=== PATIENT | female | born 1980 | race Caucasian/White ===

== ENCOUNTER 2022-03-11 09:11 | Outpatient (CLI) | payer OTHER, SELFPAY ==
--- NOTE | ~2022-03-11 | XR_ITS ---
EXAMINATION: XR chest 2V DATE: 03/11/2022 09:28 INDICATION: Pneumonia. Left posterior chest pain. TECHNIQUE: Frontal and lateral views of the chest were obtained. COMPARISON: None. FINDINGS: The chest demonstrates clear lungs without pneumonia, pleural effusion, or pneumothorax. Th e heart size is normal. IMPRESSION: 1. No acute cardiopulmonary disease. Reviewed, dictated and finalized at location A. ING COORDINATOR
== END 2022-03-11 09:12 | disposition home or self-care (01) ==
PROVIDERS: PCP Family Medicine; Visit Provider Nurse Practitioner Family
DX: J18.9 Pneumonia, unspecified organism (principal); R05.9 Cough, unspecified; U07.1 COVID-19
CPT/HCPCS: 71046

== ENCOUNTER 2022-03-13 11:46 | Outpatient (CLI) | payer OTHER, SELFPAY ==
--- NOTE | ~2022-03-13 | CT_ITS ---
EXAMINATION: CTA chest PE protocol DATE: 03/13/2022 12:27 INDICATION: Shortness of breath TECHNIQUE: Computed tomography angiography (CTA) of the chest was performed with 100 mL Omnipaque-350 intravenous contrast timed to evaluate the pulmonary arteries. Coronal maximum intensity projection 3D-reconstructions were created by the technologist. The dose-length product (DLP) was 164.55 mGy-cm. Automated exposure control and iterative reconstruction technique were employed. COMPARISON: None. FINDINGS: The pulmonary arteries are well-opacified. No pulmonary embolism is identified. The lungs a re free of acute opacities. No pleural effusion or pneumothorax. No pathologically enlarged thoracic lymph nodes are identified. The heart size is normal. IMPRESSION: 1. No pulmonary embolism or acute cardiopulmonary abnormality. Reviewed, dictated and finalized at location B. GE MILL OPERATOR
== END 2022-03-13 11:47 | disposition home or self-care (01) ==
LOC: ANHIMG 11:55
PROVIDERS: PCP Family Medicine; Visit Provider Nurse Practitioner Family
DX: R06.02 Shortness of breath (principal)
CPT/HCPCS: 71275; Q9967

== ENCOUNTER 2023-06-05 11:15 | Outpatient (CLI) | payer OTHER, SELFPAY ==
[2023-06-05 12:17] LABS: Alanine Aminotransferase 19 U/L (6-35); Albumin Level 4.5 g/dL (3.5-5.1); Alkaline Phosphatase 68 U/L (38-126); Aspartate Amino Transferase 23 U/L (14-36); Bilirubin Indirect 1.4 mg/dL (0-1.1); Bilirubin,Total 1.7 mg/dL (0.2-1.3)
== END 2023-06-05 11:16 | disposition home or self-care (01) ==
LOC: ANHLAB 11:17
PROVIDERS: PCP Family Medicine; Visit Provider Nurse Practitioner Family
DX: R17 Unspecified jaundice (principal); R19.4 Change in bowel habit
CPT/HCPCS: 36415; 80076

== ENCOUNTER 2023-06-06 10:09 | Outpatient (CLI) | payer OTHER, SELFPAY ==
[2023-06-11 14:28] LABS: Calprotectin, Stool 6 mcg/g
== END 2023-06-06 10:10 | disposition home or self-care (01) ==
LOC: ANHLAB 10:10
PROVIDERS: PCP Family Medicine; Visit Provider Nurse Practitioner Family
DX: R19.4 Change in bowel habit (principal); R17 Unspecified jaundice
CPT/HCPCS: 83993

== ENCOUNTER 2023-06-24 09:21 | Outpatient (NON) | payer OTHER, SELFPAY | END 2023-06-24 09:22 | disposition home or self-care (01) | PROVIDERS: PCP Family Medicine; Visit Provider Internal Medicine Gastroenterology | DX: R11.2 Nausea with vomiting, unspecified (principal) | CPT/HCPCS: 88305 ==

== ENCOUNTER 2023-06-24 09:38 | Day surgery (SDC) | payer OTHER, SELFPAY ==
[2023-06-10 08:52] VITALS: BMI 23.2
[2023-06-11 13:40] VITALS: BMI 22.8
--- NOTE | 2023-06-20 08:51 | PM.HPGS ---
History of Present Illness History of Present Illness Consent: Risks, benefits, and alternatives have been discussed and questions answered. Patient agrees to proceed with procedure. Chief complaint: Nausea w/vomiting unspecified,unspecified abd pain Narrative: Geri Urrutia is a 43 year old female Suffering from nausea and vomiting. She has previously been seen by Roof Foreman Dr. Jemal Singh at [facility] but has not seen him since before Covid.? she went to see him for complaints of nausea,? vomiting,? bloating,? abdominal pain, alternating constipation/diarrhea, bad taste in mouth. Had EGD by him in 2018, which revealed gastric and duodenal erosions.? gastric bx showed mild chronic gastritis, h. pylori negative. Small bowel biopsies were negative for any pathological abnormalities. In complaint is burning which is in the upper abdomen and belt like in distribution. She has lost about 7 lb since this began because of a poor appetite and nausea. she has been treated several times for SIBO with Xifaxan, including 2 recent episodes without benefit.. Review of Systems Review of Systems: All systems reviewed & are unremarkable except as noted in HPI and below PMFSH Past Medical History Medical History BMI 22.0-22.9, adult BMI 23.0-23.9, adult COVID Nausea & vomiting Pneumonia Family History Family History Father Hypertension Acute myocardial infarction Mother Hypertension Cerebrovascular accident Sibling Hypertension Grandparent Malignant neoplasm of prostate Family history of lung cancer Family history of malignant neoplasm of breast Other Diabetes mellitus Family history of malignant neoplasm Social History Social History Smoking status: Never smoker Second hand tobacco smoke exposure: No Alcohol intake: current Substance use: never Substance use type: does not use Do You Feel Safe in your Home?: Yes Lack of Transportation: No Lack of Food: Never True Current Housing: I Have Housing Concerned About Future Housing: No Difficulty Paying Gas/Electric Bills: No Difficulty Paying for Meds: No Currently Unemployed: No Education: Bachelor's Degree Difficulty w/ Childcare or Family Care: No Living arrangements: with family Occupation/Education: occupation 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[employer] Gender identity (if verbalized by the patient): Female Spiritual care concerns: No Meds Home Medications and Allergies Home Medications Medication Instructions Recorded Confirmed Type albuterol sulfate 90 mcg/actuation 1 puff inhalation Q4H PRN 07/03/20 06/24/23 Rx aerosol inhaler (ProAir HFA) shortness of breath or wheezing #6.7 grams norethindrone 1 mg-ethinyl 1 tablet PO DAILY 10/09/21 06/24/23 History estradiol 20 mcg (24)-iron 75 mg (4) tablet (Blisovi Fe) cetirizine 10 mg tablet (Zyrtec) 10 mg PO DAILY #90 tabs 04/10/22 06/24/23 Rx Lactobacillus 1 cap PO DAILY 06/11/23 06/24/23 History acidophilus-Bifidobac.animalis 2.5 billion cell capsule (Daily Probiotic) multivitamin with minerals-folic 1 tablet PO DAILY 06/11/23 06/24/23 History acid 0.4 mg tablet Allergies Allergy/AdvReac Type Severity Reaction Status Date / Time erythromycin base Allergy Unknown Unknown Verified 06/24/23 10:52 Sulfa (Sulfonamide Allergy Unknown Unknown Verified 06/24/23 10:52 Antibiotics) Exam Const: General: alert Orientation/consciousness: patient oriented x3 Resp: Auscultation: clear to auscultation bilaterally Cardio: Rhythm: regular rhythm GI: GI Palp: Yes Soft to palpation and No Tenderness to palpation present (GI) Neuro: General: patient oriented x3 Assessment and Plan Assessment and plan (
[2023-06-24 10:58] VITALS: BMI 23.2
--- NOTE | 2023-06-24 11:03 | WPDANESEPPF ---
Anes - Initial Pre Proc Eval Procedure: Operation Date: 06/24/23 11:00 Proposed Procedures p Esophagogastroduodenoscopy - Heber Helm MD Date/Time: 06/24/23 11:03 Surgeon: Heber Helm MD Pre Op Diagnosis: Nausea w/vomiting unspecified,unspecified abd pain Patient Data Age: 43 Gender: F Height: 1.73 m Weight: 68.3 kg Allergies Allergy/AdvReac Type Severity Reaction Status Date / Time erythromycin base Allergy Unknown Unknown Verified 06/24/23 10:52 Sulfa (Sulfonamide Allergy Unknown Unknown Verified 06/24/23 10:52 Antibiotics) Home Medications Medication Instructions Recorded Confirmed Type albuterol sulfate 90 mcg/actuation 1 puff inhalation Q4H PRN 07/03/20 06/24/23 Rx aerosol inhaler (ProAir HFA) shortness of breath or wheezing #6.7 grams norethindrone 1 mg-ethinyl 1 tablet PO DAILY 10/09/21 06/24/23 History estradiol 20 mcg (24)-iron 75 mg (4) tablet (Blisovi 24 Fe) cetirizine 10 mg tablet (Zyrtec) 10 mg PO DAILY #90 tabs 04/10/22 06/24/23 Rx Lactobacillus 1 cap PO DAILY 06/11/23 06/24/23 History acidophilus-Bifidobac.animalis 2.5 billion cell capsule (Daily Probiotic) multivitamin with minerals-folic 1 tablet PO DAILY 06/11/23 06/24/23 History acid 0.4 mg tablet Patient hx anesthesia problems: none Family hx anesthesia problems: none Results Review: All pre-operative results and documents have been reviewed as part of the pre-operative evaluation. [facility] Past Medical History Medical History BMI 22.0-22.9, adult BMI 23.0-23.9, adult COVID Nausea & vomiting Pneumonia Family History Family History Father Hypertension Acute myocardial infarction Mother Hypertension Cerebrovascular accident Sibling Hypertension Grandparent Malignant neoplasm of prostate Family history of lung cancer Family history of malignant neoplasm of breast Other Diabetes mellitus Family history of malignant neoplasm Social History Social History Smoking status: Never smoker Second hand tobacco smoke exposure: No Alcohol intake: current Substance use: never Substance use type: does not use Do You Feel Safe in your Home?: Yes Lack of Transportation: No Lack of Food: Never True Current Housing: I Have Housing Concerned About Future Housing: No Difficulty Paying Gas/Electric Bills: No Difficulty Paying for Meds: No Currently Unemployed: No Education: Bachelor's Degree Difficulty w/ Childcare or Family Care: No Living arrangements: with family Occupation/Education: occupation 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 Informed Consent: The patient's anesthetic plan and its attendant risks and benefits were discussed with the patient/family/POA. Questions were solicited and answers provided to the satisfaction of the patient/family/POA.
[2023-06-24 11:04] VITALS: BP 143/81; PULSE 58; RESP 16; TEMP 36.7; O2SAT 100
[2023-06-24] MEDS: LACTATED RINGERS 1,000 ML 150 ML IV CONT (11:19)
[2023-06-24 12:06] VITALS: BP 106/64; PULSE 70; RESP 18; O2SAT 100
[2023-06-24 12:16] VITALS: BP 106/77; PULSE 58; RESP 17; O2SAT 99
--- NOTE | 2023-06-24 12:19 | WPDANESPN ---
Anes - Prog Note Post-Op Date/Time: 06/24/23 12:19 Cardiovascular status: normal Respiratory status: normal Airway patency: baseline Mental status: baseline Post-Op hydration status: normal Vital Signs: Last Vital Signs Temp 36.7 C 06/24/23 11:04 Pulse 70 06/24/23 12:06 Resp 18 06/24/23 12:06 BP 106/64 06/24/23 12:06 Pulse Ox 100 06/24/23 12:06 O2 Del Method Room Air 06/24/23 12:06 Pain Score (VAS): 0 I/O: Intake & Output 06/23/23 06/24/23 06/24/23 23:59 07:59 15:59 Intake Total 300 Balance 300 Patient Feedback: Patient satisfied with anesthetic care.
[2023-06-24 12:26] VITALS: BP 110/70; PULSE 49; RESP 16; O2SAT 99
== END 2023-06-24 12:41 | disposition home or self-care (01) ==
PROVIDERS: PCP Family Medicine; Visit Provider Internal Medicine Gastroenterology
PROC: 0DJ08ZZ Inspection of Upper Intestinal Tract, Via Natural or Artificial Opening Endoscopic (ICD-10-PCS; CPT 43235; principal; 2023-06-24 11:00)
DX: R11.2 Nausea with vomiting, unspecified (principal); R10.13 Epigastric pain; K21.9 Gastro-esophageal reflux disease without esophagitis
CPT/HCPCS: 43239

== ENCOUNTER 2023-07-22 11:19 | Outpatient (CLI) | payer OTHER, SELFPAY ==
[2023-07-22 11:55] LABS: Hematocrit 42.9 % (37.0-47.0); Hemoglobin 14.3 g/dL (12.0-15.0); Mean Corpuscular HGB Conc 33.3 g/dl (32-36); Mean Corpuscular Hemoglobin 30.5 pg (26-34); Mean Corpuscular Volume 91.5 fl (80-100); Mean Platelet Volume 12.2 fl (7.4-10.4); Platelet Count Result 198 k/mm3 (150-375); Red Blood Count 4.69 M/mm3 (4.2-5.4); Red Cell Distribution Width 12.3 % (11.5-14.5); White Blood Count 9.2 K/mm3 (4.5-10.0)
[2023-07-22 12:26] LABS: Alanine Aminotransferase 19 U/L (6-35); Albumin Level 4.3 g/dL (3.5-5.1); Alkaline Phosphatase 62 U/L (38-126); Anion Gap 4 mmol/L (4-12); Aspartate Amino Transferase 23 U/L (14-36); Bilirubin,Total 1.5 mg/dL (0.2-1.3); Blood Urea Nitrogen 13 mg/dL (7-17); Calcium 9.1 mg/dL (8.4-10.2); Carbon Dioxide 28 mmol/L (22-30); Chloride 107 mmol/L (98-107); Estimated Glomerular Filt Rate > 60; Glucose 93 mg/dL (65-110); Potassium 4.2 mmol/L (3.4-5.0); Sodium 139 mmol/L (137-145)
== END 2023-07-22 11:20 | disposition home or self-care (01) ==
LOC: ANHLAB 11:20
PROVIDERS: PCP Family Medicine; Visit Provider Nurse Practitioner Family
DX: R11.2 Nausea with vomiting, unspecified (principal); R10.13 Epigastric pain; R79.89 Other specified abnormal findings of blood chemistry
CPT/HCPCS: 36415; 80053; 85027

== ENCOUNTER 2023-08-01 08:04 | Outpatient (CLI) | payer OTHER, SELFPAY ==
--- NOTE | ~2023-08-01 | NM_ITS ---
EXAM: NM gastric emptying study DATE: 08/01/2023 12:28 INDICATION: Nausea with vomiting, unspecified. TECHNIQUE: A gastric emptying study was performed using the methodology of Julissa JORGE, et al. J Nucl Med 2007; 48:568-572. The patient was given a meal consisting of 2 scrambled eggs labeled with 1.017 mCi Tc-99m sulfur colloid, 2 slices of toast, two packages of jam, and approximately 120 mL of water . Simultaneous anterior and posterior 1-min images of the abdomen were obtained with the patient supi ne at multiple time points over a total period of 4 hours. The geometric mean of anterior and posteri or views was determined, and the percentage retention was calculated for each time point. COMPARISON: None. FINDINGS: Gastric retention of the radiotracer-labeled meal was 24%, 8%, and 3% at the 1-hour, 2-luis r, and 4-hour time points, respectively. With this technique, apparent rapid gastric emptying is sugg ested by <30% gastric retention at 1 hour. Delayed gastric emptying is defined by gastric retention o f >90% at 1 hour, >60% retention at 2 hours, or >10% retention at 4 hours. IMPRESSION: 1. Rapid gastric emptying. Reviewed, dictated and finalized at location A. IMPRESSION: 1. Rapid gastric emptying.
== END 2023-08-01 08:05 | disposition home or self-care (01) ==
PROVIDERS: PCP Family Medicine; Visit Provider Nurse Practitioner Family
DX: R11.2 Nausea with vomiting, unspecified (principal); R10.13 Epigastric pain
CPT/HCPCS: 78264; A9541

== ENCOUNTER 2023-08-04 07:27 | Outpatient (CLI) | payer OTHER, SELFPAY ==
--- NOTE | ~2023-08-04 | NM_ITS ---
EXAMINATION: NM hepatobiliary wo pharm DATE: 08/04/2023 10:50 INDICATION: Epigastric abdominal pain. COMPARISON: Chest CT 03/13/2022 TECHNIQUE: 5.2 mCi Tc-99m mebrofenin (Choletec) was administered intravenously. Scintigraphic images of the abdomen were obtained for one hour. Then, the patient drank 8 oz Ensure, and imaging was cont inued for 60 minutes. FINDINGS: There is normal clearance of radiotracer from the blood pool. There is homogeneous tracer u ptake by the liver. Activity progresses to the bowel and gallbladder. Gallbladder ejection fraction (GBEF) was 78%. Note that with this technique, normal GBEF >= 33%. IMPRESSION: 1. Normal hepatobiliary scintigraphy. Reviewed, dictated and finalized at location A.
== END 2023-08-04 07:28 | disposition home or self-care (01) ==
PROVIDERS: PCP Family Medicine; Visit Provider Nurse Practitioner Family
DX: R10.13 Epigastric pain (principal); R11.2 Nausea with vomiting, unspecified
CPT/HCPCS: 78226; A9537

== ENCOUNTER 2023-08-27 14:04 | Outpatient (CLI) | payer OTHER, SELFPAY ==
[2023-09-01 15:34] LABS: Fecal Fat, Ql Normal (Normal)
[2023-09-03 21:14] LABS: Pancreatic Elastase, Stool >500 mcg/g
== END 2023-08-27 14:05 | disposition home or self-care (01) ==
LOC: ANHLAB 14:05
PROVIDERS: PCP Family Medicine; Visit Provider Nurse Practitioner Family
DX: R63.4 Abnormal weight loss (principal); R11.2 Nausea with vomiting, unspecified; R10.13 Epigastric pain; K58.2 Mixed irritable bowel syndrome
CPT/HCPCS: 82653; 82705; 87045; 87177; 87209; 87269; 87427; 87449

== ENCOUNTER 2023-09-10 08:03 | Outpatient (CLI) | payer OTHER, SELFPAY ==
--- NOTE | ~2023-09-10 | CT_ITS ---
EXAMINATION: CTA abdomen pelvis DATE: 09/10/2023 08:32 INDICATION: Unspecified abdominal pain. Epigastric abdominal pain. TECHNIQUE: Computed tomographic angiography (CTA) of the abdomen and pelvis was performed with 100 mL Omnipaque-350 intravenous contrast. Automated exposure control and iterative reconstruction techniqu e were employed. The dose-length product was 317.05 mGy-cm. Maximum intensity projection 3D-reconstru ctions of the aorta and other arteries were constructed by the technologist on a separate workstation . COMPARISON: Chest CT 01/10/2023 FINDINGS: The visualized portions of the lung bases demonstrate minimal atelectasis. No pleural effus ion. The heart size is normal. No pericardial effusion. The liver, gallbladder, spleen, pancreas, adr enal glands, and kidneys are normal. There are no dilated loops of bowel. The appendix is normal. Abd ominal aorta is normal in caliber. No dissection. There is no significant stenosis of celiac axis, bustamante perior mesenteric artery, inferior mesenteric artery, or the renal arteries. There are no pathologica lly enlarged lymph nodes. There is no free intraperitoneal fluid. There is mild thoracic and lumbar s pondylosis. IMPRESSION: 1. Normal abdominal aorta. Reviewed, dictated and finalized at location A. IMPRESSION: 1. Normal abdominal aorta.
== END 2023-09-10 08:04 | disposition home or self-care (01) ==
LOC: ANHIMG 08:05
PROVIDERS: PCP Family Medicine; Visit Provider Nurse Practitioner Family
DX: R10.13 Epigastric pain (principal); R11.2 Nausea with vomiting, unspecified; R63.4 Abnormal weight loss
CPT/HCPCS: 74174; Q9967

== ENCOUNTER 2024-07-06 08:10 | Emergency (ER) | payer OTHER, SELFPAY ==
--- NOTE | 2024-07-06 08:14 | ED.FEMALEGU ---
HPI - Female Genitourinary General Chief complaint: Urogenital-Female Stated complaint: Uti Symptoms Time Seen by Provider: 07/06/24 08:29 Source: patient, RN notes reviewed and old records reviewed Mode of arrival: ambulatory Limitations: no limitations History of Present Illness HPI Narrative: 44-year-old female presents to the [facility] with 3 day history of burning, frequency and urgency as well as low back pain. Denies any nausea or vomiting. Had felt feverish yesterday. Tried drinking cranberry juice with no relief Onset (ago): day(s) (3) Related Data Home Medications ?Medication ?Instructions ?Recorded ?Confirmed ?Last Taken ?Type norethindrone 1 mg-ethinyl 1 tablet PO DAILY 10/09/21 08/25/23 06/23/23 History estradiol 20 mcg (24)-iron 75 mg (4) tablet (Blisovi 24 Fe) Lactobacillus 1 cap PO DAILY 06/11/23 08/25/23 06/20/23 History acidophilus-Bifidobac.animalis 2.5 billion cell capsule (Daily Probiotic) multivitamin with minerals-folic 1 tablet PO DAILY 06/11/23 08/25/23 06/20/23 History acid 0.4 mg tablet Allergies Allergy/AdvReac Type Severity Reaction Status Date / Time Sulfa (Sulfonamide Allergy Intermediate Rash Verified 07/06/24 08:24 Antibiotics) erythromycin base Allergy Unknown Unknown Verified 07/06/24 08:24 Review of Systems Review of Systems: All systems reviewed & are unremarkable except as noted in HPI and below Constitutional: Constitutional: Reports no additional constitutional complaints ENT: Reports system reviewed and no additional complaints, except as documented Cardiovascular: Cardiovascular: Reports no additional cardiovascular complaints, Denies chest pain and Denies dyspnea Respiratory: Respiratory: Reports no additional respiratory complaints, Denies chest congestion, Denies cough and Denies dyspnea Genitourinary: Genitourinary: Reports as per HPI Musculoskeletal: Musculoskeletal: Reports no additional musculoskeletal complaints Integumentary/Breasts: Skin/Breast: Reports system reviewed and no additional complaints, except as docu PMFSH Past Medical History Medical History Weight loss Elevated LFTs Epigastric pain Nausea & vomiting BMI 23.0-23.9, adult Pneumonia COVID BMI 22.0-22.9, adult Family History Family History Father Hypertension Acute myocardial infarction Mother Hypertension Cerebrovascular accident Sibling Hypertension Grandparent Malignant neoplasm of prostate Family history of lung cancer Family history of malignant neoplasm of breast Other Diabetes mellitus Family history of malignant neoplasm Social History Social History Smoking status: Never smoker Second hand tobacco smoke exposure: No Alcohol intake: current Substance use: never Substance use type: does not use Do You Feel Safe in your Home?: Yes Lack of Transportation: No Lack of Food: Never True Current Housing: I Have Housing Concerned About Future Housing: No Difficulty Paying Gas/Electric Bills: No Difficulty Paying for Meds: No Currently Unemployed: No Education: Bachelor's Degree Difficulty w/ Childcare or Family Care: No Living arrangements: with family Occupation/Education: occupation 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 There is no relevant family history pertinent to the patient complaint. Exam Const: General: cooperative, healthy appearing, comfortable, no acute distress, well developed, alert and well nourished Nutritional Appearance: well nourished Orientation/consciousness: patient oriented x3 Limitations: no limitations HENMT: Head: normal to inspection Mouth: Yes Normal oral and palatal mucosa present, Yes lip normal, Yes tongue normal and Yes moist mucous membranes Eyes: General: appearance normal, both eyes and all related structures Alignment and Position: alignment normal Neck: Neck: normal visual inspection, full ROM, no lymphadenopathy and no meningeal signs Chest: Chest palpation & inspection: normal inspection of the chest Resp: Effort & Inspection: normal respiratory effort and able to speak in complete sentences Auscultation: clear to auscultation bilaterally, no crackles, no rales, no rhonchi and no wheezes Cardio: Rate: regular rate GI: GI Palp: No abdominal tenderness : General: Yes no CVA tenderness Skin: General skin exam: normal color and no rashes or lesions noted Neuro: General: patient oriented x3, gait normal, moves all extremities and no meningeal signs Cognition (Neuro): normal cognition Speech: normal speech Gait exam (Neuro): Normal gait present Extrem: General: normal to inspection, full ROM, capillary refill normal and normal gait Psych: Appearance: grossly normal and well kempt Mental Status: mental status grossly normal Speech and movement: Normal speech and movement present and Clear speech present Affect: normal affect Attitude: cooperative Course Course Level of Care: Express Care Visit Vital Signs Vital signs: Vital Signs Temperature 97.9 F 07/06/24 08:17 Pulse Rate 90 07/06/24 08:17 Respiratory Rate 16 07/06/24 08:17 Blood Pressure 116/75 07/06/24 08:17 Pulse Oximetry 100 07/06/24 08:17 Oxygen Delivery Room Air 07/06/24 08:17 Temperature 97.9 F 07/06/24 08:17 Pulse Rate 90 07/06/24 08:17 Respiratory Rate 16 07/06/24 08:17 Blood Pressure 116/75 07/06/24 08:17 Pulse Oximetry 100 07/06/24 08:17 Oxygen Delivery Room Air 07/06/24 08:17 Reviewed MDM - Female Genitourinary MDM Narrative Medical decision making narrative: Patient sitting exam. Patient is nontoxic, vitals are stable. Patient presents with urinary symptoms. Positive leukocytes, blood will cover with antibiotic, send for culture Patient appropriate for outpatient treatment with close follow-up Discharge instructions reviewed with patient, as well as provided in writing per nursing staff. The instructions also include specific and strict return/GO TO THE ER as well as f/u information. All questions have been answered, and the patient deny any further questions with discharge and discharge plan. Some parts of this dictation were generated by voice recognition software and may contain typographical and/or grammatical inaccuracies. Differential Diagnosis Differential diagnosis: Likely urinary tract infection, bacterial vaginosis, vaginitis, cystitis and dysmenorrhea Lab Data Labs: Lab Results 07/06/24 Range/Units 08:24 POC Urine Color Yellow POC Urine Clarity Clear POC Urine pH 8.5 POC Ur Specif [place] 1.015 POC Urine Protein Negative (Negative) POC Ur Glucose (UA) Negative (Negative) POC Urine Ketones Negative (Negative) POC Urine Blood 2+ (Negative) POC Urine Nitrite Negative (Negative) POC Urine Bilirubin Negative (Negative) POC Urine Urobilinogen 0.2 POC U Leukocyte Esteras 1+ (Negative) Reviewed Critical Care Time Critical Care Time Critical Care Time: No Discharge Plan Discharge Clinical Impression: Urinary tract infection Qualifiers: Urinary tract infection type: acute cystitis Hematuria presence: with hematuria Qualified Code(s): N30.01 - Acute cystitis with hematuria Patient Disposition: Home Condition: Stable Instructions: Antibiotic Form, Urinary Tract Infection in Women (DC) Additional Instructions: Increased water intake Take Tylenol as needed for pain Take antibiotic as prescribed Today your urine dip showed a probability of a UTI. You have been prescribed an antibiotic. Your urine will be sent to our lab for a culture. If at that time a bacteria grows that is not covered by the antibiotic prescribed you will be notified. Follow-up with primary care For new or worsening symptoms go directly to the emergency room Patient Language: Montenegrin Prescriptions: New amoxicillin-pot clavulanate 875-125 mg tablet 1 tablet PO Q12H Qty: 10 0RF phenazopyridine [Pyridium] 200 mg tablet 200 mg PO TID PRN (Reason: pain) Qty: 6 0RF No Action mirtazapine 7.5 mg tablet 7.5 mg PO QHS 30 Days Qty: 30 1RF albuterol sulfate [ProAir HFA] 90 mcg/actuation HFA aerosol inhaler 1 puff INHALATION Q4H PRN (Reason: shortness of breath or wheezing) Qty: 6.7 1RF norethindrone-e.estradiol-iron [Blisovi 24 Fe] 1 mg-20 mcg (24)/75 mg (4) tablet 1 tablet PO DAILY cetirizine [Zyrtec] 10 mg tablet 10 mg PO DAILY Qty: 90 0RF esomeprazole magnesium [Nexium] 40 mg capsule,delayed release(DR/EC) 40 mg PO BID 30 Days Qty: 60 2RF multivit with min-folic acid 0.4 mg Tablet 1 tablet PO DAILY Daily Probiotic 2.5 billion cell Capsule 1 cap PO DAILY Follow-up/Referrals: Nirav Costello MD [Primary Care Provider] - 2 Weeks (express care follow up ) Stand Alone Forms: Work/School Release IP Time of Disposition: 08:38
[2024-07-06 08:17] VITALS: BP 116/75; PULSE 90; RESP 16; TEMP 36.6; O2SAT 100
[2024-07-06 08:26] LABS: EDUAAPPEAR Clear; EDUABILI Negative (Negative); EDUABLOOD 2+ (Negative); EDUACOLOR1 Yellow; EDUAGLUCOSE Negative (Negative); EDUAKETONE Negative (Negative); EDUALEUKO 1+ (Negative); EDUANITRATE Negative (Negative); EDUAPH 8.5; EDUAPROTEIN Negative (Negative); EDUASPGRAVITY 1.015; EDUAUROBILI 0.2
== END 2024-07-06 08:39 | disposition home or self-care (01) ==
PROVIDERS: Emergency Provider Nurse Practitioner; PCP Family Medicine
DX: N30.01 Acute cystitis with hematuria (principal); Z86.16 Personal history of COVID-19
CPT/HCPCS: 81003; 87077; 87086; 87186; 99213; G0463

== ENCOUNTER 2024-11-01 19:35 | Emergency (ER) | payer OTHER, SELFPAY ==
[2024-11-01 19:38] VITALS: BP 121/86; PULSE 71; RESP 16; TEMP 36.5; O2SAT 100
--- NOTE | 2024-11-01 19:55 | ED.FEMALEGU ---
HPI - Female Genitourinary General Chief complaint: Urogenital-Female Stated complaint: Uti Symptoms Time Seen by Provider: 11/01/24 20:04 Source: patient, RN notes reviewed and old records reviewed Mode of arrival: ambulatory Limitations: no limitations History of Present Illness HPI Narrative: 44-year-old female presents to the [facility] with 2 day history of burning and frequency with urination. History of UTIs. Denies any nausea or vomiting Related Data Home Medications ?Medication ?Instructions ?Recorded ?Confirmed ?Last Taken ?Type norethindrone 1 mg-ethinyl 1 tablet PO DAILY 10/09/21 11/01/24 06/23/23 History estradiol 20 mcg (24)-iron 75 mg (4) tablet (Blisovi 24 Fe) multivitamin with minerals-folic 1 tablet PO DAILY 06/11/23 11/01/24 06/20/23 History acid 0.4 mg tablet Allergies Allergy/AdvReac Type Severity Reaction Status Date / Time Sulfa (Sulfonamide Allergy Intermediate Rash Verified 11/01/24 19:57 Antibiotics) erythromycin base Allergy Unknown Unknown Verified 11/01/24 19:57 Review of Systems Review of Systems: All systems reviewed & are unremarkable except as noted in HPI and below Constitutional: Constitutional: Reports no additional constitutional complaints ENT: Reports system reviewed and no additional complaints, except as documented Cardiovascular: Cardiovascular: Reports no additional cardiovascular complaints, Denies chest pain and Denies dyspnea Respiratory: Respiratory: Reports no additional respiratory complaints, Denies chest congestion, Denies cough and Denies dyspnea Genitourinary: Genitourinary: Reports as per HPI Musculoskeletal: Musculoskeletal: Reports no additional musculoskeletal complaints Integumentary/Breasts: Skin/Breast: Reports system reviewed and no additional complaints, except as docu [facility] Past Medical History Medical History Weight loss Elevated LFTs Epigastric pain Nausea & vomiting BMI 23.0-23.9, adult Pneumonia COVID BMI 22.0-22.9, adult Family History Family History Father Hypertension Acute myocardial infarction Mother Hypertension Cerebrovascular accident Sibling Hypertension Grandparent Malignant neoplasm of prostate Family history of lung cancer Family history of malignant neoplasm of breast Other Diabetes mellitus Family history of malignant neoplasm Social History Social History Smoking status: Never smoker Second hand tobacco smoke exposure: No Alcohol intake: current Substance use: never Substance use type: does not use Do You Feel Safe in your Home?: Yes Lack of Transportation: No Lack of Food: Never True Current Housing: I Have Housing Concerned About Future Housing: No Difficulty Paying Gas/Electric Bills: No Difficulty Paying for Meds: No Currently Unemployed: No Education: Bachelor's Degree Difficulty w/ Childcare or Family Care: No Living arrangements: with family Occupation/Education: occupation 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 There is no relevant family history pertinent to the patient complaint. Exam Const: General: cooperative, healthy appearing, comfortable, no acute distress, well developed, alert and well nourished Nutritional Appearance: well nourished Orientation/consciousness: patient oriented x3 Limitations: no limitations HENMT: Head: normal to inspection Eyes: General: appearance normal, both eyes and all related structures Alignment and Position: alignment normal Neck: Neck: normal visual inspection, full ROM, no lymphadenopathy and no meningeal signs Chest: Chest palpation & inspection: normal inspection of the chest Resp: Effort & Inspection: normal respiratory effort and able to speak in complete sentences Auscultation: clear to auscultation bilaterally, no crackles, no rales, no rhonchi and no wheezes Cardio: Rate: regular rate GI: GI Palp: No abdominal tenderness : General: Yes no CVA tenderness Skin: General skin exam: normal color and no rashes or lesions noted Neuro: General: patient oriented x3, gait normal, moves all extremities and no meningeal signs Cognition (Neuro): normal cognition Speech: normal speech Gait exam (Neuro): Normal gait present Extrem: General: normal to inspection, full ROM, capillary refill normal and normal gait Psych: Appearance: grossly normal and well kempt Mental Status: mental status grossly normal Speech and movement: Normal speech and movement present and Clear speech present Affect: normal affect Attitude: cooperative Course Course Level of Care: Express Care Visit Vital Signs Vital signs: Vital Signs Temperature 97.7 F 11/01/24 19:38 Pulse Rate 71 11/01/24 19:38 Respiratory Rate 16 11/01/24 19:38 Blood Pressure 121/86 11/01/24 19:38 Pulse Oximetry 100 11/01/24 19:38 Oxygen Delivery Room Air 11/01/24 19:38 Temperature 97.7 F 11/01/24 19:38 Pulse Rate 71 11/01/24 19:38 Respiratory Rate 16 11/01/24 19:38 Blood Pressure 121/86 11/01/24 19:38 Pulse Oximetry 100 11/01/24 19:38 Oxygen Delivery Room Air 11/01/24 19:38 Reviewed MDM - Female Genitourinary MDM Narrative Medical decision making narrative: Patient sitting in exam room. Patient is nontoxic, vitals stable. Patient with 2 day history of UTIs. Patient with blood and leukocytes in urine. Patient with a history of UTIs, reviewed previous chart, history of resistance to medication. Patient has a sulfa allergy. Patient is appropriate for outpatient treatment with close follow-up Discharge instructions reviewed with patient, as well as provided in writing per nursing staff. The instructions also include specific and strict return/GO TO THE ER as well as f/u information. All questions have been answered, and the patient deny any further questions with discharge and discharge plan. Some parts of this dictation were generated by voice recognition software and may contain typographical and/or grammatical inaccuracies. Differential Diagnosis Differential diagnosis: Likely urinary tract infection and cystitis Lab Data Labs: Lab Results 11/01/24 Range/Units 19:50 POC Urine Color Light/pale POC Urine Clarity Clear POC Urine pH 7.0 POC Ur Specif [place] 1.010 POC Urine Protein Negative (Negative) POC Ur Glucose (UA) Negative (Negative) POC Urine Ketones Negative (Negative) POC Urine Blood Trace (Negative) POC Urine Nitrite Negative (Negative) POC Urine Bilirubin Negative (Negative) POC Urine Urobilinogen 0.2 POC U Leukocyte Esteras Trace (Negative) Reviewed Critical Care Time Critical Care Time Critical Care Time: No Discharge Plan Discharge Clinical Impression: Urinary tract infection Patient Disposition: Home Condition: Stable Instructions: Antibiotic Form, Urinary Tract Infection in Women (ED) Additional Instructions: Increased water intake Take Tylenol as needed for pain Take antibiotic as prescribed Today your urine dip showed a probability of a UTI. You have been prescribed an antibiotic. Your urine will be sent to our lab for a culture. If at that time a bacteria grows that is not covered by the antibiotic prescribed you will be notified. Follow-up with primary care For new or worsening symptoms go directly to the emergency room Patient Language: [place] Prescriptions: New cefuroxime axetil 500 mg tablet 500 mg PO BID Qty: 10 0RF No Action albuterol sulfate [ProAir HFA] 90 mcg/actuation HFA aerosol inhaler 1 puff INHALATION Q4H PRN (Reason: shortness of breath or wheezing) Qty: 6.7 1RF norethindrone-e.estradiol-iron [Blisovi 24 Fe] 1 mg-20 mcg (24)/75 mg (4) tablet 1 tablet PO DAILY cetirizine [Zyrtec] 10 mg tablet 10 mg PO DAILY Qty: 90 0RF multivit with min-folic acid 0.4 mg Tablet 1 tablet PO DAILY Follow-up/Referrals: PHYSICIAN,SSN/SSBN ASSISTANT NAVIGATOR [Primary Care Provider, Internal Medicine] Time of Disposition: 20:10
[2024-11-01 19:57] LABS: EDUAAPPEAR Clear; EDUABILI Negative (Negative); EDUABLOOD Trace (Negative); EDUACOLOR1 Light/Pale; EDUAGLUCOSE Negative (Negative); EDUAKETONE Negative (Negative); EDUALEUKO Trace (Negative); EDUANITRATE Negative (Negative); EDUAPH 7.0; EDUAPROTEIN Negative (Negative); EDUASPGRAVITY 1.010; EDUAUROBILI 0.2
== END 2024-11-01 20:13 | disposition home or self-care (01) ==
PROVIDERS: Emergency Provider Nurse Practitioner
DX: N39.0 Urinary tract infection, site not specified (principal); Z86.16 Personal history of COVID-19
CPT/HCPCS: 81003; 87086; 99213; G0463